=== PATIENT | female | born 1940 | race Caucasian/White ===

== ENCOUNTER 2022-10-26 02:07 | Inpatient (IN) | payer MEDICARE, OTHER ==
[~2022-10-26] VITALS: Ht 154.9 cm; Wt 75.9 kg
[~2022-10-26 02:07] MED LIST: NO MEDS
--- NOTE | 2022-10-26 02:12 | NUR ---
BIBHUSBAND. DIZZYNESS, NAUSEA, VOMITTING AND ABDOMINAL PAIN X 1700. PT A/OX4. TOLERATING R/A WELL WITH NO RESP DISTRESS. CONNECTED PT TO POX AND MONITOR. SAFETY MEASURES IN PLACE.
--- NOTE | 2022-10-26 02:55 | NUR ---
R SCAR #20G S/L BLOOD COLLECTED AND SENT TO LAB
[2022-10-26] MEDS ORDERED: ONDANSETRON HCL/PF 4 MG/2 ML VIAL ONE ×3 (02:56→09:08)
[2022-10-26] MEDS ORDERED: MECLIZINE HCL 25 MG TABLET ONE (02:56)
[2022-10-26] MEDS ORDERED: ONDANSETRON HCL/PF 4 MG/2 ML VIAL IVP ONE (03:00)
[2022-10-26] MEDS ORDERED: MECLIZINE HCL 12.5 MG TABLET PO ONE (03:00)
--- NOTE | 2022-10-26 03:00 | NUR ---
EMT AT PT'S BEDSIDE FOR EKG
--- NOTE | 2022-10-26 03:08 | NUR ---
OFFERED PT URINE CUP; NOT ABLE TO URINATE AT THIS TIME. WILL TRY AGAIN LATER.
--- NOTE | 2022-10-26 03:34 | NUR ---
URINE COLLECTED AND SENT TO LAB
[2022-10-26 03:35] LABS: BASOPHILS % (AUTO) 0.2 % (0.0-2.0); EOSINOPHILS % (AUTO) 1.1 % (0.0-6.0); HEMATOCRIT 40 % (33-45); HEMOGLOBIN 13.3 g/dL (11.5-14.8); MEAN CORPUSCULAR HGB CONC 34 g/dl (31.0-36.0); MEAN CORPUSCULAR VOLUME 94 fL (82-100); MONOCYTES # (AUTO) 0.4 K/uL (0.1-1.30); MONOCYTES % (AUTO) 6.2 % (2.0-12.0); NEUTROPHILS # (AUTO) 5.6 K/uL (1.8-8.9); NEUTROPHILS % (AUTO) 78.5 % (43.0-81.0); PLATELET COUNT (AUTO) 120 K/uL (150-450); WHITE BLOOD COUNT (AUTO) 7.2 K/uL (4.3-11.0)
--- NOTE | 2022-10-26 03:52 | NUR ---
PT RETURNED TO ER BED [address]
[2022-10-26 04:15] LABS: BILIRUBIN,URINE NEGATIVE (NEGATIVE); COLOR,URINE OTHER (YELLOW); LEUKOCYTE ESTERASE ,URINE NEGATIVE (NEGATIVE); NITRITE, URINE NEGATIVE (NEGATIVE); PH,URINE 7.5 (5.0-8.0); PROTEIN,URINE TRACE mg/dl (NEGATIVE); UGLUCOSE 1+ mg/dL (NEGATIVE); UROBILINOGEN,URINE 0.2 EU/dL (0.2)
[2022-10-26 04:33] LABS: WBC,URINE 0-2 /HPF (0-3)
[2022-10-26 04:34] LABS: BACTERIA,URINE Rare /HPF (None Seen); SQUAMOUS EPITHELIAL CELL,UR Few /HPF (None Seen)
[2022-10-26 04:42] LABS: ALANINE AMINOTRANSFERASE 23 U/L (12-78); ALBUMIN 3.9 g/dL (3.4-5.0); ALKALINE PHOSPHATASE 77 U/L (46-116); ASPARTATE AMINOTRANSFERASE 25 U/L (15-37); BILIRUBIN,DIRECT 0.2 mg/dL (0.0-0.2); BILIRUBIN,TOTAL 0.6 mg/dL (0.2-1.0); CALCIUM, SERUM 9.2 mg/dL (8.5-10.1); CARBON DIOXIDE 25 mmol/L (21-32); CHLORIDE 100 mmol/L (98-107); CREATININE 0.6 mg/dL (0.6-1.3); GLUCOSE 183 mg/dL (74-106); POTASSIUM 3.6 mmol/L (3.5-5.1); SODIUM SERUM 133 mmol/L (136-145); TOTAL PROTEIN, SERUM 8.4 g/dL (6.4-8.2); UREA NITROGEN, BLOOD 17 mg/dL (7-18)
[2022-10-26] MEDS ORDERED: ONDANSETRON HCL/PF 4 MG/2 ML VIAL IV ONE ×2 (05:00→09:30)
--- NOTE | 2022-10-26 05:15 | NUR ---
BLOOD FOR TROPONIN COLLECTED AND SENT TO LAB
[2022-10-26] MEDS ORDERED: METOCLOPRAMIDE HCL 10 MG/2 ML VIAL ONE (05:55)
[2022-10-26] MEDS ORDERED: METOCLOPRAMIDE HCL 10 MG/2 ML VIAL IV ONE (06:00)
--- NOTE | 2022-10-26 06:42 | NUR ---
CALLED [employer] TO BE READ IN ABOUT 20 MINS
[2022-10-26] MEDS ORDERED: OMEP1CAP25 PO (08:30)
[2022-10-26] MEDS ORDERED: DORZ10DR11 EACHEYE (08:30)
[2022-10-26] MEDS ORDERED: AMLO-212 PO (08:30)
[2022-10-26] MEDS ORDERED: FAMO40TA7 PO (08:30)
[2022-10-26] MEDS ORDERED: MEMA10TA56 PO (08:30)
--- NOTE | 2022-10-26 08:59 | NUR ---
[facility] CALLED MANAGER MECHANICAL MAINTENANCE PAGED.
--- NOTE | 2022-10-26 09:05 | NUR ---
covid swab collected and sent to lab
--- NOTE | 2022-10-26 09:07 | NUR ---
PT C/O OF NAUSEA. MD MADE AWARE.
--- NOTE | 2022-10-26 09:08 | NUR ---
SALINE LOCK NOTED AT RIGHT HAND 20G.
--- NOTE | 2022-10-26 11:47 | NUR ---
ROOM 306-1
--- NOTE | 2022-10-26 12:02 | NUR ---
PT REPORT GIVEN TO PATRICIA BERRIOS
[2022-10-26] MEDS ORDERED: HYDROCODONE/APAP 5/325MG TABLET PO PRN (12:30)
[2022-10-26] MEDS ORDERED: ENOXAPARIN SODIUM 40 MG/0.4 ML DISP.SYRIN SQ SCH (12:30)
[2022-10-26] MEDS ORDERED: ACETAMINOPHEN 325 MG TABLET PO PRN (12:30)
[2022-10-26] MEDS ORDERED: ONDANSETRON HCL/PF 4 MG/2 ML VIAL IVP PRN (12:30)
--- NOTE | 2022-10-26 12:35 | NUR ---
PT TRANSFERRED TO UNIT VIA GURNEY. WARM HANDOFF GIVEN TO RN ASSIGNED.
--- NOTE | 2022-10-26 13:00 | NUR ---
TERRAZZO GRINDER NOTE ADMITTED THIS 82 Y/O FEMALE PATIENT FROM ER @1245, TRANSPORTED VIA [facility]. ACCOMPANIED BY ER NURSE RAJ. PATIENT IS AWAKE, A/O X4, VERBALLY RESPONSIVE, NO SIGNS OF ACUTE DISTRESS NOTED. WITH ADMITTING DIAGNOSIS OF: INTRACTABLE NAUSEA/VOMITING, ABDOMINAL PAIN. PATIENT IS STABLE ON ROOM AIR. DENIES ANY PAIN OR DISCOMFORT AT THIS TIME. ABLE TO TRANSFER FROM [facility] TO BED AMBULATORY WITH STEADY GAIT. NOTED WITH PERIPHERAL ACCESS ON RIGHT HAND #20G, INTACT AND PATENT, FLUSHES WELL. BODY ASSESSMENT DONE, SKIN IS GENERALLY INTACT. NO OPEN WOUND OR BRUISES. NOTED WITH SKIN GROWTH ON LEFT UPPER ABDOMEN. PATIENT DENIES ANY PAIN, ITCHINESS ON SITE. PLACED PATIENT ON MAINFRAME SYSTEMS PROGRAMMER, WITH CURRENT READING OF SINUS RHYTHM, HR @69. ROUTINE ADMISSION CARE PROVIDED. ORIENTED PATIENT TO ROOM AND STAFF. SAFETY MEASURE IN PLACE. BED IN LOWEST AND LOCKED POSITION, SIDE RAILS UP X2, CALL LIGHT PLACED WITHIN EASY REACH. WILL CONTINUE TO MONITOR PATIENT.
[2022-10-26] MEDS: PANTOPRAZOLE 40 MG VIAL IV SCH (13:35)
[2022-10-26] MEDS: IV D5/0.45 NACL 1,000 ML IV PRN (15:57)
[2022-10-26 16:00] VITALS: BP 144/63
[2022-10-26] MEDS: MEMANTINE HCL 5 MG TABLET PO SCH (16:30)
--- NOTE | 2022-10-26 18:45 | NUR ---
RN CLOSING NOTE PATIENT IN BED, AWAKE, NO SIGNS OF ACUTE DISTRESS NOTED. STABLE ON ROOM AIR, BREATHING EVEN AND UNLABORED. ON TELE MONITOR SHOWING SINUS RHYTHM, HR @ 69. DENIES ANY PAIN OR DISCOMFORT AT THIS TIME. IV ACCESS ON RIGHT HAND #20G, INTACT AND PATENT WITH D5 1/2 NS @75ML/HR INFUSING WELL. SAFETY MEASURE MAINTAINED. BED IN LOWEST AND LOCKED POSITION, SIDE RAILS UP X2, CALL LIGHT PLACED WITHIN EASY REACH. WILL ENDORSE TO NEXT SHIFT FOR CONTINUITY OF CARE.
--- NOTE | 2022-10-26 19:00 | NUR ---
PLASTIC PRESS OPERATOR OPENING NOTE PATIENT IS RESTING IN BED. ALERT AND ORIENTED, AO X 3. SHE IS ON RA, TOLERATED WELL; NO S/S OF DISTRESS. PATIENT IS ABLE TO WALK TO THE BATHROOM WITH ASSISTANCE. SHE HAS IV ACCESS AT HER RIGHT HAND, #20g, RUNNING D5 1/2 NS @75 ML / HR. IV SITE IS PATENT AND INTACT. INSTRUCTED PATIENT TO CALL THE [facility] WHEN SHE NEEDS GO TO THE BATHROOM AND WHEN SHE NEEDS HELP. PATIENT VERBALIZED UNDERSTANDING. PATIENT IS ON EXTERNAL TELE MONITOR, AND THE RHYTHM ON THE MONITOR IS: SR WITH BBB; HR IS AT AROUND 60S BPM. SAFETY MEASURES ARE IN PLACE: BED IN LOCK AND LOWEST POSITION; CALL LIGHT AND TABLE ARE WITHIN REACH; SIDE RAILS UP X 2. WILL CONTINUE MONITOR THE PATIENT AND PROVIDE THE CARE PATIENT NEEDS.
[2022-10-26 20:00] VITALS: BP 129/52
[2022-10-26] MEDS ORDERED: TIMOLOL MAL/DORZOLAM HCL OPHTH 10 ML BOTTLE EACHEYE SCH (22:00)
[2022-10-27 00:29] VITALS: BP 143/67
[2022-10-27 04:00] VITALS: BP 147/64
[2022-10-27] MEDS: IV D5/0.45 NACL 1,000 ML IV PRN (05:02)
[2022-10-27 05:51] LABS: BASOPHILS % (AUTO) 0.2 % (0.0-2.0); HEMATOCRIT 38 % (33-45); HEMOGLOBIN 12.9 g/dL (11.5-14.8); LYMPHOCYTES # (AUTO) 1.2 K/uL (0.8-4.8); LYMPHOCYTES % (AUTO) 18.3 % (20.0-44.0); MEAN CORPUSCULAR HGB CONC 34 g/dl (31.0-36.0); MEAN CORPUSCULAR VOLUME 93 fL (82-100); MONOCYTES # (AUTO) 0.9 K/uL (0.1-1.30); NEUTROPHILS # (AUTO) 4.2 K/uL (1.8-8.9); NEUTROPHILS % (AUTO) 66.5 % (43.0-81.0); PLATELET COUNT (AUTO) 134 K/uL (150-450); RED BLOOD CELL COUNT(AUTO) 4.07 MIL/uL (4.0-5.2); WHITE BLOOD COUNT (AUTO) 6.3 K/uL (4.3-11.0)
[2022-10-27 06:07] LABS: CALCIUM, SERUM 8.6 mg/dL (8.5-10.1); CREATININE 0.6 mg/dL (0.6-1.3); MAGNESIUM 1.9 mg/dL (1.8-2.4); PHOSPHORUS 2.9 mg/dL (2.5-4.9); POTASSIUM 3.1 mmol/L (3.5-5.1)
[2022-10-27 06:21] LABS: THYROID STIMULATING HORMONE 1.026 uIU/mL (0.358-3.74)
--- NOTE | 2022-10-27 06:57 | NUR ---
AFFIRMATIVE ACTION OFFICER CLOSING NOTE PATIENT IS RESTING IN BED. ALERT AND ORIENTED, AO X 3. SHE IS ON RA, TOLERATED WELL; NO S/S OF DISTRESS. IV ACCESS AT HER RIGHT HAND, #20g, RUNNING D5 1/2 NS @75 ML /HR; PATENT AND INTACT. PATIENT IS ON EXTERNAL TELE MONITOR, AND THE RHYTHM ON THE MONITOR IS: SR WITH BBB; HR IS AT AROUND 70S BPM. SAFETY MEASURES ARE IN PLACE: BED IN LOCK AND LOWEST POSITION; CALL LIGHT AND TABLE ARE WITHIN REACH; SIDE RAILS UP X 2. WILL ENDORSE NEXT SHIFT NURSE FOR CONTINUING PATIENT CARE.
--- NOTE | 2022-10-27 07:30 | NUR ---
RN Opening Note Patient AOx4 able to express her own concerns. Patient reports no pain, no signs of discomfort or distress. Discussed plan of care, pt verbalized agreement. All safety precautions taken, call light and table within reach, bed at lowest position. Will continue to monitor throughout shift.
[2022-10-27 08:00] VITALS: BP 141/74
[2022-10-27] MEDS: PANTOPRAZOLE 40 MG VIAL IV SCH (08:29)
[2022-10-27] MEDS: MEMANTINE HCL 5 MG TABLET PO SCH (08:29)
[2022-10-27] MEDS: POTASSIUM CHLORIDE 20 MEQ TAB.PRT.SR PO SCH ×2 (08:29→11:07)
[2022-10-27 08:30] VITALS: BP 141/74
[2022-10-27] MEDS ORDERED: AMLODIPINE BESYLATE 5 MG TABLET PO SCH (09:00)
--- NOTE | 2022-10-27 11:19 | NUR ---
child and family therapist Note Patient AOx4 able to express her own concerns. Patient agrees with physicians plan to discharge. Educated patient on importance of diet, an foods to avoid for nausea and vomiting. 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 All safety precautions taken, patient wheeled out to main entrance with son. Provided documentation on hospital stay o share with her physician. No incidents to report. IV removed and intact.
[2022-10-28] MEDS ORDERED: PANTOPRAZOLE 40 MG TABLET.DR PO SCH (09:00)
== END 2022-10-27 11:20 | disposition home or self-care (01) | DRG 392 ==
LOC: ER 02:09 → TELE 11:56
DX: A05.9 Bacterial foodborne intoxication, unspecified (principal); E87.1 Hypo-osmolality and hyponatremia; E86.9 Volume depletion, unspecified; I10 Essential (primary) hypertension; F03.90 Unspecified dementia, unspecified severity, without behavioral disturbance, psychotic disturbance, mood disturbance, and anxiety; Z79.899 Other long term (current) drug therapy; K57.30 Diverticulosis of large intestine without perforation or abscess without bleeding
CPT/HCPCS: 36415; 70450-TC; 71045-TC; 80048-TC; 80061-TC; 80076-TC; 81001; 83735-TC; 84100-TC; 84443-TC; 84484-TC; 85025-TC; 85730-TC; 87081-TC; C9113; C9803; G0378; J1650; J2405; J2765; J3490; J8597

== ENCOUNTER 2025-04-11 09:25 | Inpatient (IN) | payer MEDICARE, OTHER ==
[~2025-04-11] VITALS: Ht 154.9 cm; Wt 78.0 kg
[~2025-04-11 09:25] MED LIST changes: +AMLO-212 PO; +DORZ10DR11 EACHEYE; +FAMO40TA7 PO; +MEMA10TA56 PO; -NO MEDS; +OMEP1CAP25 PO
[2025-04-11] MEDS ORDERED: ONDANSETRON HCL/PF 4 MG/2 ML VIAL ONE (09:43)
[2025-04-11] MEDS ORDERED: MORPHINE SULFATE INJ 2 MG/ML DISP.SYRIN ONE (09:44)
[2025-04-11] MEDS: ONDANSETRON HCL/PF 4 MG/2 ML VIAL IVP ONE (09:56)
[2025-04-11 09:59] LABS: BASOPHILS % (AUTO) 0.2 % (0.0-2.0); EOSINOPHILS % (AUTO) 0.1 % (0.0-6.0); HEMATOCRIT 38 % (33-45); HEMOGLOBIN 13.2 g/dL (11.5-14.8); LYMPHOCYTES # (AUTO) 0.4 K/uL (0.8-4.8); LYMPHOCYTES % (AUTO) 7.3 % (20.0-44.0); MEAN CORPUSCULAR HEMOGLOBIN 32 PG (26.0-33.0); MEAN CORPUSCULAR HGB CONC 35 g/dl (31.0-36.0); MEAN CORPUSCULAR VOLUME 93 fL (82-100); MONOCYTES # (AUTO) 0.3 K/uL (0.1-1.30); MONOCYTES % (AUTO) 4.2 % (2.0-12.0); NEUTROPHILS # (AUTO) 5.3 K/uL (1.8-8.9); NEUTROPHILS % (AUTO) 88.2 % (43.0-81.0); PLATELET COUNT (AUTO) 130 K/uL (150-450); RED BLOOD CELL COUNT(AUTO) 4.09 MIL/uL (4.0-5.2); RED CELL DISTRIBUTION WIDTH 13.4 % (11.5-15.0)
[2025-04-11] MEDS: IV NS 0.9% 1,000 ML BAG IV ONE (10:01)
[2025-04-11] MEDS: MORPHINE SULFATE INJ 2 MG/ML DISP.SYRIN IV ONE (10:03)
[2025-04-11 10:17] LABS: CARBON DIOXIDE 25 mmol/L (21-32); CHLORIDE 98 mmol/L (98-107); CREATININE 0.7 mg/dL (0.6-1.3); GLUCOSE 178 mg/dL (74-106); POTASSIUM 3.7 mmol/L (3.5-5.1); SODIUM SERUM 134 mmol/L (136-145); UREA NITROGEN, BLOOD 17 mg/dL (7-18)
[2025-04-11 10:22] LABS: ALANINE AMINOTRANSFERASE 18 U/L (12-78); ALBUMIN 3.9 g/dL (3.4-5.0); ALKALINE PHOSPHATASE 98 U/L (46-116); ASPARTATE AMINOTRANSFERASE 21 U/L (15-37); BILIRUBIN,DIRECT 0.2 mg/dL (0.0-0.2); BILIRUBIN,TOTAL 0.7 mg/dL (0.2-1.0); LIPASE 34 U/L (16-77); TOTAL PROTEIN, SERUM 8.7 g/dL (6.4-8.2)
[2025-04-11] MEDS ORDERED: DORZ10DR10 EACHEYE (10:32)
[2025-04-11] MEDS ORDERED: LATA2.5D15 EACHEYE (10:32)
[2025-04-11] MEDS ORDERED: ROSU5TAB13 PO (10:32)
[2025-04-11] MEDS ORDERED: DOCU-141 PO (10:32)
[2025-04-11] MEDS ORDERED: OMEP1PAC5 PO (10:32)
[2025-04-11] MEDS ORDERED: Z GUARD REMEDY 4 OZ OINT TP PRN (15:00)
[2025-04-11] MEDS ORDERED: ACETAMINOPHEN 325 MG TABLET PO PRN (15:00)
[2025-04-11] MEDS ORDERED: MAG HYDROX/AL HYDROX/SIMETH 30 ML UDC PO PRN ×2 (15:00→15:30)
[2025-04-11] MEDS ORDERED: MAGNESIUM HYDROXIDE 30 ML UDC PO PRN (15:00)
[2025-04-11] MEDS ORDERED: ONDANSETRON HCL/PF 4 MG/2 ML VIAL IVP PRN (15:00)
[2025-04-11] MEDS ORDERED: MORPHINE SULFATE INJ 2 MG/ML DISP.SYRIN IV PRN (15:30)
[2025-04-11] MEDS ORDERED: LOPERAMIDE HCL (2 MG CAP) 2 MG CAPSULE PO PRN (15:30)
[2025-04-11] MEDS ORDERED: AMLODIPINE BESYLATE 5 MG TABLET PO PRN (15:30)
[2025-04-11] MEDS: IV NS 0.9% 1,000 ML IV PRN (15:46)
[2025-04-11] MEDS: FAMOTIDINE/PF INJ 20 MG/2 ML VIAL IV SCH (15:48)
[2025-04-11 16:00] VITALS: BP 112/60; TEMP 97.7; O2SAT 94
[2025-04-11 20:00] VITALS: BP 113/58; TEMP 97.7; O2SAT 95
[2025-04-12 07:52] LABS: CALCIUM, SERUM 8.5 mg/dL (8.5-10.1); CREATININE 0.7 mg/dL (0.6-1.3); PHOSPHORUS 2.5 mg/dL (2.5-4.9); POTASSIUM 3.3 mmol/L (3.5-5.1)
[2025-04-12 08:00] VITALS: BP_SYST 100; BP_SYST 102; BP_DIAS 50; TEMP 98.1; O2SAT 94
[2025-04-12 08:00] LABS: BASOPHILS % (AUTO) 0.2 % (0.0-2.0); EOSINOPHILS # (AUTO) 0.1 K/uL (0.0-0.7); EOSINOPHILS % (AUTO) 1.4 % (0.0-6.0); HEMATOCRIT 37 % (33-45); HEMOGLOBIN 12.4 g/dL (11.5-14.8); LYMPHOCYTES # (AUTO) 0.7 K/uL (0.8-4.8); LYMPHOCYTES % (AUTO) 16.1 % (20.0-44.0); MEAN CORPUSCULAR HEMOGLOBIN 32 PG (26.0-33.0); MEAN CORPUSCULAR HGB CONC 34 g/dl (31.0-36.0); MEAN CORPUSCULAR VOLUME 94 fL (82-100); MONOCYTES # (AUTO) 0.6 K/uL (0.1-1.30); MONOCYTES % (AUTO) 13.7 % (2.0-12.0); NEUTROPHILS # (AUTO) 3.2 K/uL (1.8-8.9); NEUTROPHILS % (AUTO) 68.6 % (43.0-81.0); PLATELET COUNT (AUTO) 128 K/uL (150-450); RED BLOOD CELL COUNT(AUTO) 3.95 MIL/uL (4.0-5.2); RED CELL DISTRIBUTION WIDTH 13.2 % (11.5-15.0); WHITE BLOOD COUNT (AUTO) 4.6 K/uL (4.3-11.0)
[2025-04-12] MEDS: POTASSIUM CHLORIDE 20 MEQ TAB.PRT.SR PO SCH (10:18)
== END 2025-04-12 14:31 | disposition home or self-care (01) | DRG 372 ==
LOC: ER 09:34 → MED 13:51
PROVIDERS: ADMIT Internal Medicine; ATTEND Internal Medicine
DX: A04.9 Bacterial intestinal infection, unspecified (principal); E87.1 Hypo-osmolality and hyponatremia; E87.20 Acidosis, unspecified; E86.1 Hypovolemia; K44.9 Diaphragmatic hernia without obstruction or gangrene; K57.30 Diverticulosis of large intestine without perforation or abscess without bleeding; I11.9 Hypertensive heart disease without heart failure; F03.90 Unspecified dementia, unspecified severity, without behavioral disturbance, psychotic disturbance, mood disturbance, and anxiety; Z79.899 Other long term (current) drug therapy
CPT/HCPCS: 36415; 71045-TC; 80048-TC; 80076-TC; 83690-TC; 83735-TC; 84100-TC; 84484-TC; 85025-TC; A4223; G0378; J1308; J2270; J2405; J7030

== ENCOUNTER 2025-05-29 16:02 | Inpatient (IN) | payer MEDICARE, OTHER ==
[~2025-05-29] VITALS: Ht 165.1 cm; Wt 79.4 kg
[~2025-05-29 16:02] MED LIST changes: +DOCU-141 PO; +DORZ10DR10 EACHEYE; -DORZ10DR11 EACHEYE; -FAMO40TA7 PO; +LATA2.5D15 EACHEYE; -MEMA10TA56 PO; -OMEP1CAP25 PO; +OMEP1PAC5 PO; +ROSU5TAB13 PO
[2025-05-29] MEDS ORDERED: ONDANSETRON HCL/PF 4 MG/2 ML VIAL ONE ×2 (16:30→17:38)
[2025-05-29] MEDS ORDERED: FAMOTIDINE/PF INJ 20 MG/2 ML VIAL IV ONE (16:31)
[2025-05-29] MEDS ORDERED: MAG HYDROX/AL HYDROX/SIMETH 30 ML UDC ONE (16:31)
[2025-05-29 16:37] LABS: PLATELET COUNT (AUTO) 128 K/uL (150-450); RED BLOOD CELL COUNT(AUTO) 4.25 MIL/uL (4.0-5.2); RED CELL DISTRIBUTION WIDTH 13.7 % (11.5-15.0); WHITE BLOOD COUNT (AUTO) 7.3 K/uL (4.3-11.0)
[2025-05-29] MEDS: ONDANSETRON HCL/PF 4 MG/2 ML VIAL IVP ONE (16:38)
[2025-05-29] MEDS: MAG HYDROX/AL HYDROX/SIMETH 30 ML UDC PO ONE (16:38)
[2025-05-29] MEDS: FAMOTIDINE/PF INJ 20 MG/2 ML VIAL IV ONE (16:38)
[2025-05-29 16:50] LABS: CALCIUM, SERUM 9.0 mg/dL (8.5-10.1); CREATININE 0.6 mg/dL (0.6-1.3); SODIUM SERUM 133 mmol/L (136-145); UREA NITROGEN, BLOOD 14 mg/dL (7-18)
[2025-05-29 16:55] LABS: ASPARTATE AMINOTRANSFERASE 25 U/L (15-37); TOTAL PROTEIN, SERUM 8.5 g/dL (6.4-8.2)
[2025-05-29 17:00] LABS: APPEARANCE,URINE CLEAR (CLEAR); BLOOD, URINE TRACE-INTA Ery/uL (NEGATIVE); LEUKOCYTE ESTERASE ,URINE NEGATIVE (NEGATIVE); NITRITE, URINE NEGATIVE (NEGATIVE); UGLUCOSE NEGATIVE (NEGATIVE)
[2025-05-29 17:04] LABS: ADD URINE CULTURE NO; SQUAMOUS EPITHELIAL CELL,UR 0-2 /HPF (None Seen)
[2025-05-29] MEDS: ONDANSETRON HCL/PF - ER 4 MG/2 ML VIAL IV ONE (17:42)
[2025-05-29] MEDS: hydrALAZINE HCL IV 20 MG VIAL IV ONE (19:55)
[2025-05-29 20:45] VITALS: BP 147/81; TEMP 97.5; O2SAT 98
[2025-05-29] MEDS ORDERED: AMLODIPINE BESYLATE 5 MG TABLET PO PRN (21:00)
[2025-05-29] MEDS ORDERED: ONDANSETRON HCL/PF 4 MG/2 ML VIAL IVP PRN (21:00)
[2025-05-29] MEDS ORDERED: hydrALAZINE HCL IV 20 MG VIAL IV PRN (21:00)
[2025-05-29] MEDS ORDERED: MAGNESIUM HYDROXIDE 30 ML UDC PO PRN (21:00)
[2025-05-29] MEDS ORDERED: ACETAMINOPHEN 325 MG TABLET PO PRN (21:00)
[2025-05-29] MEDS ORDERED: ZOLPIDEM TARTRATE 5 MG TABLET PO PRN (21:00)
[2025-05-29] MEDS ORDERED: MAG HYDROX/AL HYDROX/SIMETH 30 ML UDC PO PRN (21:00)
[2025-05-29] MEDS ORDERED: Z GUARD REMEDY 4 OZ OINT TP PRN (21:00)
[2025-05-29] MEDS: IV NS 0.9% 1,000 ML IV SCH (21:42)
[2025-05-29] MEDS: LATANOPROST EYE DROP 0.005% 2.5 ML BOTTLE EACHEYE SCH (21:56)
[2025-05-29 22:23] VITALS: BP 147/81; TEMP 97.5; O2SAT 98
[2025-05-30] VITALS: BP 151/74; TEMP 97.9; O2SAT 96
[2025-05-30 04:00] VITALS: BP 107/65; TEMP 97.7; O2SAT 96
[2025-05-30 06:51] LABS: PLATELET COUNT (AUTO) 124 K/uL (150-450); RED BLOOD CELL COUNT(AUTO) 4.02 MIL/uL (4.0-5.2); RED CELL DISTRIBUTION WIDTH 13.3 % (11.5-15.0); WHITE BLOOD COUNT (AUTO) 6.2 K/uL (4.3-11.0)
[2025-05-30 07:08] LABS: CALCIUM, SERUM 8.3 mg/dL (8.5-10.1); CREATININE 0.8 mg/dL (0.6-1.3); PHOSPHORUS 3.9 mg/dL (2.5-4.9); SODIUM SERUM 134.0 mmol/L (136-145); UREA NITROGEN, BLOOD 11.0 mg/dL (7-18)
[2025-05-30 08:00] VITALS: BP 100/65; TEMP 97.9; O2SAT 96
[2025-05-30] MEDS: PANTOPRAZOLE 40 MG TABLET.DR PO SCH (08:00)
[2025-05-30] MEDS: DOCUSATE SODIUM 100 MG CAPSULE PO SCH (08:07)
[2025-05-30] MEDS: ATORVASTATIN 10 MG TABLET PO SCH (08:08)
[2025-05-30] MEDS: POTASSIUM CHLORIDE 20 MEQ TAB.PRT.SR PO SCH (10:13)
[2025-05-30 12:00] VITALS: BP 109/63; TEMP 97.2; O2SAT 95
[2025-05-30 16:00] VITALS: BP 117/61; TEMP 97.9; O2SAT 95
[2025-05-30] MEDS ORDERED: ONDA4TAB11 PO (17:11)
== END 2025-05-30 18:10 | disposition home or self-care (01) | DRG 445 ==
LOC: ER 16:06 → TELE 20:35
PROVIDERS: ADMIT Registered Nurse Psychiatric/Mental Health; ATTEND Registered Nurse Psychiatric/Mental Health
DX: K80.20 Calculus of gallbladder without cholecystitis without obstruction (principal); E87.1 Hypo-osmolality and hyponatremia; K21.9 Gastro-esophageal reflux disease without esophagitis; K44.9 Diaphragmatic hernia without obstruction or gangrene; K57.30 Diverticulosis of large intestine without perforation or abscess without bleeding; M51.34 Other intervertebral disc degeneration, thoracic region; E86.0 Dehydration; E78.5 Hyperlipidemia, unspecified; Z85.3 Personal history of malignant neoplasm of breast; M81.0 Age-related osteoporosis without current pathological fracture; I10 Essential (primary) hypertension; F03.90 Unspecified dementia, unspecified severity, without behavioral disturbance, psychotic disturbance, mood disturbance, and anxiety; Z98.42 Cataract extraction status, left eye; Z98.41 Cataract extraction status, right eye
CPT/HCPCS: 36415; 71045-TC; 71250-TC; 76705-TC; 80048-TC; 80076-TC; 81001; 83690-TC; 83735-TC; 84100-TC; 84484-TC; 85025-TC; G0378; J0360; J1308; J2405; J7030